=== PATIENT | female | born 1995 | race African-American/Black ===

== ENCOUNTER 2019-01-23 23:30 | Observation (INO) | payer MEDICAID, OTHER ==
[~2019-01-23] VITALS: Ht 160 cm; Wt 59.0 kg
[~2019-01-23 23:30] MED LIST: BENADRYL; PRENATAL ONE T1 EACH
[2019-01-24 00:57] LABS: CLARITY URINE CLOUDY (CLEAR); COLOR URINE YELLOW (YELLOW); KETONES URINE NEGATIVE (NEGATIVE); LEUKOCYTE ESTERASE URINE NEGATIVE (NEGATIVE); NITRITE URINE NEGATIVE (NEGATIVE); OCCULT BLOOD URINE NEGATIVE (NEGATIVE); PH URINE 7.5 (4.5-8.0); PROTEIN URINE TRACE (NEGATIVE); SPECIFIC GRAVITY URINE 1.023 (1.005-1.030)
[2019-01-24] MEDS ORDERED: CEFAZOLIN 2,000 MG in DEXT 5% WATER 100 ML IV SCH (03:00)
== END 2019-01-24 08:00 | disposition home or self-care (01) ==
LOC: 8 EST LDRP 23:30
PROVIDERS: ADMIT Obstetrics & Gynecology; ATTEND Obstetrics & Gynecology
DX: O26.892 Other specified pregnancy related conditions, second trimester (principal); R10.30 Lower abdominal pain, unspecified; Z3A.25 25 weeks gestation of pregnancy
CPT/HCPCS: 76805; 81003; 96365; 99281; G0378; J0690; J7060

== ENCOUNTER 2019-03-04 21:16 | Observation (INO) | payer OTHER ==
[~2019-03-04] VITALS: Ht 170.2 cm; Wt 59.9 kg
== END 2019-03-04 22:45 | disposition home or self-care (01) ==
LOC: 8 EST LDRP 21:16
PROVIDERS: ADMIT Obstetrics & Gynecology; ATTEND Obstetrics & Gynecology
DX: O26.893 Other specified pregnancy related conditions, third trimester (principal); R10.10 Upper abdominal pain, unspecified; Z3A.31 31 weeks gestation of pregnancy
CPT/HCPCS: 99281; G0378

== ENCOUNTER 2021-11-04 01:03 | Emergency (ER) | payer OTHER ==
[~2021-11-04] VITALS: Ht 170.2 cm; Wt 54.0 kg
[~2021-11-04 01:03] MED LIST changes: -BENADRYL
[2021-11-04 01:11] VITALS: BP 136/80
[2021-11-04 01:49] LABS: CHLORIDE 105 mEq/L (98-107)
[2021-11-04 01:52] LABS: HCG SCREEN NEGATIVE
[2021-11-04 01:55] LABS: BASOPHILS % 0.2 % (0.0-2.0); EOSINOPHILS % 1.3 % (0.0-5.0); HEMATOCRIT. 31.5 % (36.0-48.0); HEMOGLOBIN. 10.4 g/dL (12.0-16.0); LYMPHOCYTES % 23.6 % (20.0-50.0); MEAN CORPUSCULAR HEMOGLOBIN 30.5 pg (28.0-32.0); MEAN CORPUSCULAR VOLUME 92.6 fL (81.0-99.0); MEAN PLATELET VOLUME 8.7 fl (7.4-10.4); MONOCYTES % 9.1 % (2.0-8.0); NEUTROPHILS % 65.8 % (40.0-76.0); PLATELET 186 x1000/uL (130-400); RED CELL DISTRIBUTION WIDTH 12.5 % (11.6-14.6)
[2021-11-04] MEDS ORDERED: FURO-152 MT (03:07)
== END 2021-11-04 03:21 | disposition home or self-care (01) ==
LOC: ER 01:03
DX: R60.9 Edema, unspecified (principal)
CPT/HCPCS: 36415; 80053; 84703; 85025; 99283

== ENCOUNTER 2023-12-29 22:31 | Emergency (ER) | payer OTHER ==
[~2023-12-29] VITALS: Ht 170.2 cm; Wt 64.0 kg
[~2023-12-29 22:31] MED LIST changes: +FURO-152 MT
[2023-12-29 22:53] VITALS: TEMP 98; O2SAT 100
[2023-12-29 23:24] LABS: BASOPHILS % 0.3 % (0.0-2.0); EOSINOPHILS % 1.1 % (0.0-5.0); HEMATOCRIT. 31.8 % (36.0-48.0); HEMOGLOBIN. 10.7 g/dL (12.0-16.0); LYMPHOCYTES % 16.9 % (20.0-50.0); MEAN CORPUSCULAR HEMOGLOBIN 30.2 pg (28.0-32.0); MEAN CORPUSCULAR HGB CONC 33.6 g/dL (31.0-37.0); MEAN CORPUSCULAR VOLUME 89.8 fL (81.0-99.0); MEAN PLATELET VOLUME 7.6 fl (7.4-10.4); MONOCYTES % 9.4 % (2.0-8.0); NEUTROPHILS % 72.3 % (40.0-76.0); PLATELET 282 x1000/uL (130-400); RED BLOOD CELL COUNT 3.54 mill/uL (4.2-5.4); RED CELL DISTRIBUTION WIDTH 12.5 % (11.6-14.6); WHITE BLOOD COUNT 6.6 x1000/uL (4.5-11.0)
[2023-12-29 23:31] LABS: CHLORIDE 103 mEq/L (98-107); POTASSIUM 3.8 mEq/L (3.5-5.1); SODIUM 134 mEq/L (136-145)
[2023-12-29 23:32] LABS: CARBON DIOXIDE 25 mEq/L (21-32)
[2023-12-29 23:33] LABS: CALCIUM 9.5 mg/dL (8.7-10.4)
[2023-12-29 23:37] LABS: CREATININE 0.5 mg/dL (0.6-1.0); GLUCOSE 92 mg/dL (70-105)
[2023-12-29 23:38] LABS: INR 0.9; PROTHROMBIN TIME 10.3 sec (9.6-11.0); UREA NITROGEN BLOOD 8 mg/dL (9-23)
[2023-12-29 23:39] LABS: ALANINE AMINOTRANSFERASE 15 IU/L (10-49); ALBUMIN 3.8 g/dL (3.2-4.8); ASPARTATE AMINOTRANSFERASE 18 IU/L (<34)
[2023-12-29 23:40] LABS: BILIRUBIN TOTAL 0.4 mg/dL (0.1-1.0); PROTEIN TOTAL 6.7 g/dL (6.0-8.3)
[2023-12-29 23:47] LABS: BILIRUBIN DIRECT < 0.1 mg/dL (<=3.0)
[2023-12-30 00:29] LABS: B-HCG QUANTITATIVE > 1000 mIU/mL (<3)
[2023-12-30] MEDS: SODIUM CHLORIDE 0.9% 1,000 ML IV ONE (04:06)
[2023-12-30] MEDS: MAGNESIUM/ALUMINUM HYDROXIDE/SIMETHICONE 30ML UDC PO ONE (04:14)
[2023-12-30 04:19] LABS: CLARITY URINE CLEAR (CLEAR); COLOR URINE YELLOW (YELLOW); GLUCOSE URINE NEGATIVE (NEGATIVE); KETONES URINE NEGATIVE (NEGATIVE); LEUKOCYTE ESTERASE URINE NEGATIVE (NEGATIVE); NITRITE URINE NEGATIVE (NEGATIVE); OCCULT BLOOD URINE NEGATIVE (NEGATIVE); PROTEIN URINE NEGATIVE (NEGATIVE); SPECIFIC GRAVITY URINE 1.023 (1.005-1.030); UROBILINOGEN URINE 0.2 E.U./dL (0.2-1.0)
[2023-12-30] MEDS: ACETAMINOPHEN 1000MG/100ML 100 ML IV ONE (04:28)
[2023-12-30] MEDS: MAGNESIUM/ALUMINUM HYDROXIDE/SIMETHICONE 30ML UDC PO NR (04:30)
[2023-12-30] MEDS ORDERED: ONDA4TAB50 MT (05:39)
[2023-12-30] MEDS ORDERED: ACET-2708 MT (05:39)
[2023-12-30 05:57] VITALS: BP 110/72; PULSE 65; RESP 18; O2SAT 100
== END 2023-12-30 05:59 | disposition home or self-care (01) ==
LOC: ER 22:31
DX: O26.891 Other specified pregnancy related conditions, first trimester (principal); R10.2 Pelvic and perineal pain; Z3A.12 12 weeks gestation of pregnancy
CPT/HCPCS: 80076; 80048; 84702; 83690; 85025; 85610; 36415; 76700; 76801; 99285; 81003; 96365; J7030; Z7610; J0131

== ENCOUNTER 2024-06-14 00:16 | Emergency (ER) | payer MEDICAID, OTHER ==
[~2024-06-14] VITALS: Ht 170.2 cm; Wt 67.0 kg
[~2024-06-14 00:16] MED LIST changes: +ACET-2708 MT; +ONDA4TAB50 MT
[2024-06-14 00:18] VITALS: TEMP 36.9; O2SAT 100
[2024-06-14 01:11] LABS: BASOPHILS % 0.5 % (0.0-2.0); EOSINOPHILS % 1.4 % (0.0-5.0); HEMATOCRIT. 32.6 % (36.0-48.0); HEMOGLOBIN. 11.1 g/dL (12.0-16.0); LYMPHOCYTES % 20.2 % (20.0-50.0); MEAN CORPUSCULAR HEMOGLOBIN 30.3 pg (28.0-32.0); MEAN CORPUSCULAR HGB CONC 33.9 g/dL (31.0-37.0); MEAN CORPUSCULAR VOLUME 89.3 fL (81.0-99.0); MEAN PLATELET VOLUME 9.7 fl (7.4-10.4); MONOCYTES % 10.2 % (2.0-8.0); NEUTROPHILS % 67.7 % (40.0-76.0); PLATELET 248 x1000/uL (130-400); RED BLOOD CELL COUNT 3.65 mill/uL (4.2-5.4); RED CELL DISTRIBUTION WIDTH 12.6 % (11.6-14.6)
[2024-06-14 01:15] LABS: CARBON DIOXIDE 23 mEq/L (21-32); CHLORIDE 105 mEq/L (98-107); POTASSIUM 4.3 mEq/L (3.5-5.1); SODIUM 134 mEq/L (136-145)
[2024-06-14 01:16] LABS: CALCIUM 9.6 mg/dL (8.7-10.4)
[2024-06-14 01:18] VITALS: BP 114/81; PULSE 69; RESP 21; O2SAT 99
[2024-06-14 01:21] LABS: CREATININE 0.5 mg/dL (0.6-1.0); GLUCOSE 82 mg/dL (70-105); UREA NITROGEN BLOOD < 5 mg/dL (9-23)
[2024-06-14 02:31] LABS: B-HCG QUANTITATIVE 57622 mIU/mL (<6)
== END 2024-06-14 01:28 | disposition short-term general hospital (02) ==
LOC: ER 00:16
DX: O46.93 Antepartum hemorrhage, unspecified, third trimester (principal); O47.1 False labor at or after 37 completed weeks of gestation; Z3A.37 37 weeks gestation of pregnancy
CPT/HCPCS: 80048; 84702; 85025; 86850; 86900; 86901; 36415; 76805; 99285; Z7610

== ENCOUNTER 2024-06-21 10:56 | Emergency (ER) | payer MEDICAID ==
[~2024-06-21] VITALS: Ht 170.2 cm; Wt 69.0 kg
[2024-06-21 10:57] VITALS: O2SAT 100
[2024-06-21 11:55] LABS: BASOPHILS % 0.3 % (0.0-2.0); EOSINOPHILS % 0.9 % (0.0-5.0); HEMATOCRIT. 30.5 % (36.0-48.0); HEMOGLOBIN. 10.5 g/dL (12.0-16.0); LYMPHOCYTES % 19.4 % (20.0-50.0); MEAN CORPUSCULAR HEMOGLOBIN 30.6 pg (28.0-32.0); MEAN CORPUSCULAR HGB CONC 34.3 g/dL (31.0-37.0); MEAN CORPUSCULAR VOLUME 89.3 fL (81.0-99.0); MEAN PLATELET VOLUME 9.8 fl (7.4-10.4); MONOCYTES % 10.6 % (2.0-8.0); NEUTROPHILS % 68.8 % (40.0-76.0); PLATELET 221 x1000/uL (130-400); RED BLOOD CELL COUNT 3.42 mill/uL (4.2-5.4); RED CELL DISTRIBUTION WIDTH 12.6 % (11.6-14.6); WHITE BLOOD COUNT 6.5 x1000/uL (4.5-11.0)
[2024-06-21 12:01] LABS: CHLORIDE 105 mEq/L (98-107); SODIUM 137 mEq/L (136-145)
[2024-06-21 12:03] LABS: CARBON DIOXIDE 23 mEq/L (21-32)
[2024-06-21 12:04] LABS: CALCIUM 9.4 mg/dL (8.7-10.4)
[2024-06-21 12:09] LABS: CREATININE 0.6 mg/dL (0.6-1.0); GLUCOSE 88 mg/dL (70-105); UREA NITROGEN BLOOD 6 mg/dL (9-23)
[2024-06-21 12:10] LABS: ALANINE AMINOTRANSFERASE 20 IU/L (10-49); ALBUMIN 3.6 g/dL (3.2-4.8); ASPARTATE AMINOTRANSFERASE 26 IU/L (<34)
[2024-06-21 12:11] LABS: BILIRUBIN TOTAL 0.4 mg/dL (0.1-1.0); PROTEIN TOTAL 6.3 g/dL (6.0-8.3)
[2024-06-21 12:15] VITALS: BP 109/79; PULSE 70; RESP 18; TEMP 36.6; O2SAT 97
[2024-06-21 12:27] LABS: INR 0.9; PARTIAL THROMBOPLASTIN TIME 25.3 sec (23.4-31.0); PROTHROMBIN TIME 9.8 sec (9.6-11.0)
[2024-06-21 13:33] LABS: B-HCG QUANTITATIVE 70941 mIU/mL (<6)
== END 2024-06-21 12:27 | disposition short-term general hospital (02) ==
LOC: ER 10:57
DX: O62.9 Abnormality of forces of labor, unspecified (principal); Z3A.39 39 weeks gestation of pregnancy; O26.893 Other specified pregnancy related conditions, third trimester; Z79.899 Other long term (current) drug therapy
CPT/HCPCS: 80053; 84702; 85025; 85610; 85730; 86850; 86900; 86901; 36415; 76805; 99285; Z7610

== ENCOUNTER 2024-07-06 06:55 | Emergency (ER) | payer MEDICAID ==
[~2024-07-06] VITALS: Ht 170.2 cm; Wt 67.3 kg
[2024-07-06 07:03] VITALS: O2SAT 98
[2024-07-06 07:50] VITALS: BP 119/86; PULSE 72; RESP 16; TEMP 36.8; O2SAT 100
[2024-07-06 07:53] LABS: BASOPHILS % 0.5 % (0.0-2.0); HEMATOCRIT. 31.2 % (36.0-48.0); HEMOGLOBIN. 10.7 g/dL (12.0-16.0); LYMPHOCYTES % 25.1 % (20.0-50.0); MEAN CORPUSCULAR HEMOGLOBIN 30.4 pg (28.0-32.0); MEAN CORPUSCULAR HGB CONC 34.1 g/dL (31.0-37.0); MEAN PLATELET VOLUME 9.7 fl (7.4-10.4); MONOCYTES % 10.4 % (2.0-8.0); PLATELET 224 x1000/uL (130-400); RED BLOOD CELL COUNT 3.51 mill/uL (4.2-5.4); WHITE BLOOD COUNT 4.9 x1000/uL (4.5-11.0)
[2024-07-06 08:11] LABS: CHLORIDE 103 mEq/L (98-107); POTASSIUM 3.8 mEq/L (3.5-5.1); SODIUM 135 mEq/L (136-145)
[2024-07-06 08:12] LABS: CALCIUM 9.6 mg/dL (8.7-10.4); CARBON DIOXIDE 23 mEq/L (21-32)
[2024-07-06 08:17] LABS: CREATININE 0.6 mg/dL (0.6-1.0); GLUCOSE 91 mg/dL (70-105); UREA NITROGEN BLOOD 6 mg/dL (9-23)
[2024-07-06 08:19] LABS: ALANINE AMINOTRANSFERASE 12 IU/L (10-49); ALBUMIN 3.9 g/dL (3.2-4.8); ASPARTATE AMINOTRANSFERASE 21 IU/L (<34)
[2024-07-06 08:20] LABS: BILIRUBIN TOTAL 0.5 mg/dL (0.1-1.0); PROTEIN TOTAL 6.6 g/dL (6.0-8.3)
[2024-07-06 08:47] LABS: B-HCG QUANTITATIVE 60219 mIU/mL (<6)
== END 2024-07-06 07:47 | disposition short-term general hospital (02) ==
LOC: ER 06:55
DX: O48.0 Post-term pregnancy (principal); N85.8 Other specified noninflammatory disorders of uterus; N89.8 Other specified noninflammatory disorders of vagina; Z3A.41 41 weeks gestation of pregnancy
CPT/HCPCS: 80053; 84702; 85025; 36415; 76805; 99285; Z7610 ×2; A4606

== ENCOUNTER 2024-09-18 18:23 | Emergency (ER) | payer MEDICAID, OTHER ==
[~2024-09-18] VITALS: Ht 170.2 cm; Wt 54.0 kg
[2024-09-18 18:29] VITALS: O2SAT 98
[2024-09-18] MEDS: CEFTRIAXONE SODIUM 500MG VIAL IM ONE (20:38)
[2024-09-18] MEDS: METRONIDAZOLE 500MG TABLET PO ONE (20:39)
[2024-09-18] MEDS: AZITHROMYCIN 500 MG TABLET PO ONE (20:39)
[2024-09-18 20:48] VITALS: BP 136/90; PULSE 76; RESP 16; TEMP 36.7; O2SAT 100
[2024-09-18 21:25] LABS: HCG SCREEN NEGATIVE
== END 2024-09-18 20:53 | disposition home or self-care (01) ==
LOC: ER 18:23
DX: N89.8 Other specified noninflammatory disorders of vagina (principal); Z11.3 Encounter for screening for infections with a predominantly sexual mode of transmission; Z20.2 Contact with and (suspected) exposure to infections with a predominantly sexual mode of transmission; Z79.899 Other long term (current) drug therapy
CPT/HCPCS: 99283; 86592; 84703; 36415; 96372; J0696

== ENCOUNTER 2024-09-26 14:45 | Emergency (ER) | payer MEDICAID ==
[~2024-09-26] VITALS: Ht 167.6 cm; Wt 54.0 kg
[2024-09-26 14:57] VITALS: TEMP 36.8; O2SAT 99
[2024-09-26] MEDS ORDERED: METR-167 MT (17:32)
[2024-09-26 18:29] VITALS: BP 134/63; PULSE 59; RESP 18; O2SAT 99
[2024-09-28 13:07] LABS: CHLAMYDIA TRACHOMATIS NAA Negative (Negative); NEISSERIA GONORRHOEAE NAA Negative (Negative)
== END 2024-09-26 18:30 | disposition home or self-care (01) ==
LOC: ER 14:45
DX: N76.0 Acute vaginitis (principal); Z11.3 Encounter for screening for infections with a predominantly sexual mode of transmission; Z79.899 Other long term (current) drug therapy
CPT/HCPCS: 81025; 87491; 87591; 99283